=== PATIENT | male | born 1960 | race Caucasian/White ===

== ENCOUNTER → 2016-07-21 | Outpatient (REF) | payer OTHER | LOC: M SFHCPLAZ 08:32 | PROVIDERS: ATTEND Family Medicine | DX: E11.9 Type 2 diabetes mellitus without complications (principal); N39.43 Post-void dribbling | CPT/HCPCS: 36415; 82043; 83036; G0103 ==

== ENCOUNTER 2016-11-24 07:21 | Outpatient (CLI) | payer OTHER ==
[~2016-11-24] VITALS: Ht 182.9 cm; Wt 120.2 kg
[~2016-11-24 07:21] MED LIST: ASPI1TAB PO; GLUC15002 PO; METF750T PO; MULT1TAB10 PO; SAW80CAP PO
[2016-11-24] MEDS ORDERED: NS 1,000 ML IV ONE (08:00)
[2016-11-24] MEDS ORDERED: PROPOFOL 200 MG/20 ML VIAL As Ordered ONE ×2 (08:56→09:03)
--- NOTE | 2016-11-24 09:09 | ROOR ---
Patient Name: Marcello Salazar Procedure Date: 11/24/2016 8:50 AM Date of : 1960 Age: 56 Room: [facility] Gender: Male Note Status: Finalized Procedure: Total Colonoscopy to Cecum Indications: High risk colon cancer surveillance: Personal history of colon cancer, Last colonoscopy: 2006 Providers: Mario Colón MD Referring MD: PERRI SMITH DO Requesting Provider: Medicines: Monitored Anesthesia Care Complications: No immediate complications. Procedure: Pre-Anesthesia Assessment: - The heart rate, respiratory rate, oxygen saturations, blood pressure, adequacy of pulmonary ventilation, and response to care were monitored throughout the procedure. The Colonoscope was introduced through the anus and advanced to the cecum, identified by appendiceal orifice and ileocecal valve. The colonoscopy was performed without difficulty. The patient tolerated the procedure well. The quality of the bowel preparation was excellent. Findings: The perianal and digital rectal examinations were normal. Non-bleeding internal hemorrhoids were found during retroflexion. The hemorrhoids were small and Grade I (internal hemorrhoids that do not prolapse). Scattered small-mouthed diverticula were found in the recto-sigmoid colon, sigmoid colon and descending colon. The exam was otherwise without abnormality on direct and retroflexion views. Impression: - Non-bleeding internal hemorrhoids. - Diverticulosis in the recto-sigmoid colon, in the sigmoid colon and in the descending colon. - The examination was otherwise normal on direct and retroflexion views. - No specimens collected. - The exam was otherwise normal to the cecum. Recommendation: - Patient has a contact number available for emergencies. The signs and symptoms of potential delayed complications were discussed with the patient. Return to normal activities tomorrow. Written discharge instructions were provided to the patient. - High fiber diet. - Discharge patient to home. - Continue present medications. - Repeat colonoscopy in 5 years for screening purposes. - Return to referring physician. - The findings and recommendations were discussed with the patient's family. Mario Colón MD Mario Colón MD 11/24/2016 9:09:32 AM This report has been signed electronically. Number of Addenda: 0 Note Initiated On: 11/24/2016 8:50 AM Estimated Blood Loss: Estimated blood loss: none.
[2016-11-24 09:30] VITALS: BP 186/99
== END 2016-11-24 09:53 | disposition home or self-care (01) ==
LOC: M OPP 07:21
PROVIDERS: ATTEND Internal Medicine Gastroenterology
DX: Z12.11 Encounter for screening for malignant neoplasm of colon (principal); K64.0 First degree hemorrhoids; K57.30 Diverticulosis of large intestine without perforation or abscess without bleeding; E11.9 Type 2 diabetes mellitus without complications; Z85.038 Personal history of other malignant neoplasm of large intestine; M19.90 Unspecified osteoarthritis, unspecified site; Z80.0 Family history of malignant neoplasm of digestive organs; Z79.82 Long term (current) use of aspirin; Z79.899 Other long term (current) drug therapy

== ENCOUNTER → 2016-12-16 | Outpatient (CLI) | payer OTHER ==
--- NOTE | 2016-12-16 12:21 | REP ---
Cervical spine seven views: There are no comparisons. There are anterior bridging osteophytes at C three through C seven. This is nonspecific and could represent multilevel degenerative disc disease or diffuse idiopathic skeletal hyperostosis. Vertebral body heights and alignment are normal. The prevertebral soft tissues are normal. The facets are normally aligned. There is no listhesis on flexion or extension. C1-C7 are visualized in the lateral views. T1 is obscured by the shoulders. The patient should return for followup study demonstrating T1. If this is not possible consider CT or MRI. There is moderate foraminal encroachment on the right at C for five C5-6 from uncinate spurring. No bony foraminal encroachment is identified on the left. The odontoid view is unremarkable. Impression: Multilevel anterior measuring osteophytes as described, nonspecific, degenerative disc disease versus diffuse idiopathic skeletal hyperostosis. Moderate bony foraminal encroachment on the right as described. T1 is not demonstrated as it is obscured by the shoulders. The patient should return for follow-up views demonstrating T1 in the lateral projection. If this is not possible consider CT or MRI. Signed by Titi Thomason MD 12/16/2016 12:12 P
== END ==
LOC: M WUC 11:37
PROVIDERS: ATTEND Physician Assistant
DX: M54.2 Cervicalgia (principal)

== ENCOUNTER → 2017-01-26 | Outpatient (REF) | payer OTHER ==
[2017-01-26 13:07] LABS: ALBUMIN 3.5 GM/DL (3.2-5.2); ALBUMIN/GLOBULIN RATIO 0.97 (1.00-1.93); ALKALINE PHOSPHATASE 59 U/L (45-117); ALT/SGPT 43 U/L (12-78); ANION GAP 4 MEQ/L (8-16); AST/SGOT 33 U/L (7-37); BILIRUBIN,TOTAL 0.6 MG/DL (0.2-1.0); BLOOD UREA NITROGEN 15 MG/DL (7-18); CARBON DIOXIDE LEVEL 30 MEQ/L (21-32); CHLORIDE LEVEL 106 MEQ/L (98-107); CREATININE FOR GFR 0.83 MG/DL (0.70-1.30); GLOMERULAR FILTRATION RATE > 60.0 (>56); GLUCOSE, FASTING 90 MG/DL (70-105); PHOSPHORUS LEVEL 2.8 MG/DL (2.5-4.9); POTASSIUM SERUM 4.8 MEQ/L (3.5-5.1); SODIUM LEVEL 140 MEQ/L (136-145); TOTAL PROTEIN 7.1 GM/DL (6.4-8.2)
== END ==
LOC: M SFHCPLAZ 08:53
PROVIDERS: ATTEND Family Medicine
DX: M85.80 Other specified disorders of bone density and structure, unspecified site (principal)

== ENCOUNTER → 2017-08-03 | Outpatient (REF) | payer OTHER ==
[2017-08-03 11:34] LABS: ANION GAP 7 MEQ/L (8-16); BLOOD UREA NITROGEN 18 MG/DL (7-18); CALCIUM LEVEL 8.8 MG/DL (8.5-10.1); CARBON DIOXIDE LEVEL 27 MEQ/L (21-32); CHLORIDE LEVEL 107 MEQ/L (98-107); CHOLESTEROL LEVEL 149 MG/DL (<200); CHOLESTEROL RISK RATIO 2.292 (<5); GLOMERULAR FILTRATION RATE > 60.0 (>56); GLUCOSE, FASTING 82 MG/DL (70-100); HDL CHOLESTEROL 65 MG/DL (>40); LDL CHOLESTEROL 71.2 MG/DL (<100); NON-HDL-C 84 MG/DL; POTASSIUM SERUM 4.6 MEQ/L (3.5-5.1); SODIUM LEVEL 141 MEQ/L (136-145); TRIGLYCERIDES LEVEL 64 MG/DL (<150)
[2017-08-03 11:44] LABS: ESTIMATED AVERAGE GLUCOSE 111 MG/DL (60-110); HEMOGLOBIN A1c 5.5 %
[2017-08-03 12:21] LABS: CREATININE, URINE 51.3 MG/DL; MALB URINE SIEMENS < 5.0 MG/L; MAU/CREAT RATIO 9.7 MCG/MG (0.0-30.0)
== END ==
LOC: M SFHCPLAZ 08:23
DX: E11.9 Type 2 diabetes mellitus without complications (principal); Z12.5 Encounter for screening for malignant neoplasm of prostate

== ENCOUNTER 2017-12-27 14:30 | Emergency (ER) | payer OTHER ==
[2017-12-27] MEDS: LIDOCAINE 1% MDV 20ML VIAL SC (15:00)
[2017-12-27] MEDS: PERCOCET 5MG/325MG TAB PO (16:24)
== END 2017-12-27 16:28 | disposition home or self-care (01) ==
LOC: M ED 14:30
DX: S61.012A Laceration without foreign body of left thumb without damage to nail, initial encounter (principal); S61.211A Laceration without foreign body of left index finger without damage to nail, initial encounter; W31.2XXA Contact with powered woodworking and forming machines, initial encounter; Y92.009 Unspecified place in unspecified non-institutional (private) residence as the place of occurrence of the external cause; Y93.89 Activity, other specified; Z79.84 Long term (current) use of oral hypoglycemic drugs; Z79.899 Other long term (current) drug therapy
CPT/HCPCS: 12002

== ENCOUNTER → 2018-05-03 | Outpatient (REF) | payer OTHER ==
[~2018-05-03] MED LIST changes: +DOXY100C37 PO; +FLOM0.4C39 PO; +LISI10TA4 PO; +OXYC1TAB15 PO; +PRAV10TA4 PO; +PRAV40TA2 PO
[2018-05-03 17:42] LABS: BASO # 0.1 10^3/uL (0.0-0.2); BASO % 0.6 % (0.0-1.0); EOS # 0.4 10^3/uL (0.0-0.50); EOS % 4.5 % (0.0-3.0); HEMATOCRIT 47.8 % (42.0-52.0); HEMOGLOBIN 15.8 g/dl (13.5-17.5); LYMPH # 2.9 10^3/uL (1.5-4.5); LYMPH % 35.8 % (24.0-44.0); MEAN CORPUSCULAR HEMOGLOBIN 32.5 pg (27.0-33.0); MEAN CORPUSCULAR HGB CONC 33.1 g/dl (32.0-36.5); MEAN CORPUSCULAR VOLUME 98.4 fl (80.0-96.0); MONO # 0.8 10^3/uL (0.0-0.8); MONO % 9.4 % (0.0-5.0); NEUTROPHILS % 49.4 % (36.0-66.0); PLATELET COUNT, AUTOMATED 212 10^3/uL (150-450); RED BLOOD COUNT 4.86 10^6/uL (4.30-6.10)
[2018-05-03 18:03] LABS: BLOOD UREA NITROGEN 20 MG/DL (7-18); CALCIUM LEVEL 8.7 MG/DL (8.5-10.1); CARBON DIOXIDE LEVEL 30 MEQ/L (21-32); CHLORIDE LEVEL 104 MEQ/L (98-107); CREATININE FOR GFR 0.75 MG/DL (0.70-1.30); GLOMERULAR FILTRATION RATE > 60.0 (>56); GLUCOSE, FASTING 95 MG/DL (70-100); POTASSIUM SERUM 4.1 MEQ/L (3.5-5.1); SODIUM LEVEL 138 MEQ/L (136-145)
[2018-05-03 18:09] LABS: HEMOGLOBIN A1c 6.3 %
[2018-05-03 18:14] LABS: VITAMIN B12 LEVEL 765 PG/ML (247-911)
== END ==
LOC: M SFHCPLAZ 15:10
PROVIDERS: ATTEND Family Medicine
DX: G62.9 Polyneuropathy, unspecified (principal); E11.9 Type 2 diabetes mellitus without complications

== ENCOUNTER → 2018-06-02 | Outpatient (CLI) | payer OTHER ==
--- NOTE | 2018-06-03 01:52 | REP ---
Clinical: Rotator cuff. Right shoulder pain. Technique: Internal rotation, external rotation, and Y view of the right shoulder. 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 Findings include cortical irregularity and spurring/osteophyte formation involving the acromioclavicular joint and distal acromion as well as subtle cortical irregularity and spurring along the humeral head identified on the internal rotation view. There is no evidence for acute fracture or dislocation. The subacromial space measures approximately 10 mm on external rotation, and narrows to 8.8 mm on internal rotation view. No periarticular calcifications or loose bodies are identified. Impression: Moderate/early advanced degenerative changes. Electronically Signed by Everett Merida MD 06/03/2018 01:44 A
== END ==
LOC: M WUC 11:10
PROVIDERS: ATTEND Family Medicine
DX: M67.911 Unspecified disorder of synovium and tendon, right shoulder (principal); M19.011 Primary osteoarthritis, right shoulder

== ENCOUNTER → 2019-02-01 | Outpatient (REF) | payer OTHER ==
[~2019-02-01] MED LIST changes: -ASPI1TAB PO; +ASPI81TA26 PO; -METF750T PO; +METF750T36 PO
== END ==
LOC: M SFHCPLAZ 14:36
PROVIDERS: ATTEND Family Medicine
DX: E11.9 Type 2 diabetes mellitus without complications (principal); Z53.9 Procedure and treatment not carried out, unspecified reason

== ENCOUNTER → 2019-03-30 | Outpatient (CLI) | payer OTHER ==
[2019-03-30 17:51] LABS: CREATININE, URINE 36.6 MG/DL; MALB URINE SIEMENS < 5.0 MG/L; MAU/CREAT RATIO 13.6 MCG/MG (0.0-30.0)
== END ==
LOC: M WUC 12:07
PROVIDERS: ATTEND Student in an Organized Health Care Education/Training Program
DX: E11.9 Type 2 diabetes mellitus without complications (principal)

== ENCOUNTER → 2020-01-04 | Outpatient (REF) | payer OTHER ==
[2020-01-04 11:20] LABS: HEMATOCRIT 45.2 % (42.0-52.0); HEMOGLOBIN 14.6 g/dl (13.5-17.5); MEAN CORPUSCULAR HEMOGLOBIN 32.3 pg (27.0-33.0); MEAN CORPUSCULAR HGB CONC 32.3 g/dl (32.0-36.5); PLATELET COUNT, AUTOMATED 187 10^3/uL (150-450); RED BLOOD COUNT 4.52 10^6/uL (4.30-6.10); WHITE BLOOD COUNT 5.8 10^3/uL (4.0-10.0)
[2020-01-04 11:42] LABS: ALBUMIN 3.5 GM/DL (3.2-5.2); ALT/SGPT 39 U/L (12-78); BILIRUBIN,TOTAL 0.8 MG/DL (0.2-1.0); BLOOD UREA NITROGEN 16 MG/DL (7-18); CALCIUM LEVEL 9.3 MG/DL (8.5-10.1); CARBON DIOXIDE LEVEL 26 MEQ/L (21-32); CHLORIDE LEVEL 106 MEQ/L (98-107); CHOLESTEROL LEVEL 145 MG/DL (<200); CHOLESTEROL RISK RATIO 2.013 (<5); CREATININE FOR GFR 0.74 MG/DL (0.70-1.30); GLOMERULAR FILTRATION RATE > 60.0 (>56); GLUCOSE, FASTING 100 MG/DL (70-100); HDL CHOLESTEROL 72 MG/DL (>40); LDL CHOLESTEROL 64 MG/DL (<100); NON-HDL-C 73 MG/DL; POTASSIUM SERUM 4.5 MEQ/L (3.5-5.1); SODIUM LEVEL 138 MEQ/L (136-145); TRIGLYCERIDES LEVEL 45 MG/DL (<150)
[2020-01-04 11:47] LABS: HEMOGLOBIN A1c 5.5 %
[2020-01-04 12:06] LABS: CREATININE, URINE 53.6 MG/DL; MALB URINE SIEMENS < 5.0 MG/L; MAU/CREAT RATIO 9.3 MCG/MG (0.0-30.0)
== END ==
LOC: M SFHCPLAZ 08:07
PROVIDERS: ATTEND Student in an Organized Health Care Education/Training Program
DX: E11.9 Type 2 diabetes mellitus without complications (principal); I10 Essential (primary) hypertension

== ENCOUNTER → 2021-01-16 | Outpatient (CLI) | payer OTHER, BC ==
[~2021-01-16] MED LIST changes: +DOXY-443 PO; -DOXY100C37 PO; +LISI10TA22 PO; -LISI10TA4 PO; -OXYC1TAB15 PO; +OXYC7.5T3 PO
[2021-01-16 13:45] LABS: BASO # 0.1 10^3/uL (0.0-0.2); BASO % 1.1 % (0.0-1.0); EOS # 0.3 10^3/uL (0.0-0.5); EOS % 5.2 % (0.0-3.0); HEMATOCRIT 46.5 % (42.0-52.0); LYMPH # 1.8 10^3/uL (1.5-5.0); LYMPH % 33.3 % (24.0-44.0); MEAN CORPUSCULAR HEMOGLOBIN 32.4 pg (27.0-33.0); MEAN CORPUSCULAR HGB CONC 32.3 g/dl (32.0-36.5); MEAN CORPUSCULAR VOLUME 100.4 fl (80.0-96.0); MONO # 0.4 10^3/uL (0.0-0.8); NEUTROPHILS # 2.8 10^3/uL (1.5-8.5); NEUTROPHILS % 52.2 % (36.0-66.0); PLATELET COUNT, AUTOMATED 171 10^3/uL (150-450); RED BLOOD COUNT 4.63 10^6/uL (4.30-6.10); WHITE BLOOD COUNT 5.4 10^3/uL (4.0-10.0)
[2021-01-16 14:11] LABS: ALBUMIN 3.5 GM/DL (3.2-5.2); ALT/SGPT 48 U/L (12-78); BILIRUBIN,TOTAL 0.7 MG/DL (0.2-1.0); BLOOD UREA NITROGEN 15 MG/DL (7-18); CALCIUM LEVEL 9.5 MG/DL (8.5-10.1); CARBON DIOXIDE LEVEL 29 MEQ/L (21-32); CHLORIDE LEVEL 108 MEQ/L (98-107); CHOLESTEROL LEVEL 151 MG/DL (<200); CHOLESTEROL RISK RATIO 2.013 (<5); CREATININE FOR GFR 0.68 MG/DL (0.70-1.30); GLOMERULAR FILTRATION RATE > 60.0 (>56); GLUCOSE, FASTING 93 MG/DL (70-100); HDL CHOLESTEROL 75 MG/DL (>40); LDL CHOLESTEROL 65 MG/DL (<100); NON-HDL-C 76 MG/DL; POTASSIUM SERUM 4.3 MEQ/L (3.5-5.1); SODIUM LEVEL 140 MEQ/L (136-145); TOTAL PROTEIN 6.9 GM/DL (6.4-8.2); TRIGLYCERIDES LEVEL 56 MG/DL (<150)
[2021-01-16 14:27] LABS: MALB URINE SIEMENS < 5.0 MG/L; MAU/CREAT RATIO 7.4 MCG/MG (0.0-30.0)
[2021-01-16 14:28] LABS: HEMOGLOBIN A1c 5.6 %
== END ==
LOC: M PLALAB 09:14
PROVIDERS: ATTEND Student in an Organized Health Care Education/Training Program
DX: I10 Essential (primary) hypertension (principal); E11.9 Type 2 diabetes mellitus without complications; E78.5 Hyperlipidemia, unspecified

== ENCOUNTER → 2021-12-15 | Outpatient (CLI) | payer BC ==
[~2021-12-15] MED LIST changes: +ATOR40TA75 PO; +LISI5TAB11 PO; +METF-838 PO
== END ==
LOC: M LABSMTC 10:21
PROVIDERS: ATTEND Anesthesiology
DX: Z01.812 Encounter for preprocedural laboratory examination (principal); Z20.822 Contact with and (suspected) exposure to COVID-19

== ENCOUNTER 2021-12-18 10:13 | Day surgery (SDC) | payer BC ==
[~2021-12-18] VITALS: Ht 182.9 cm; Wt 114.9 kg
[~2021-12-18 10:13] MED LIST changes: +NS 1,000 ML IV ONE
[2021-12-18] MEDS ORDERED: propofoL 200 MG/20 ML VIAL As Ordered ONE ×2 (11:38→11:39)
[2021-12-18] MEDS ORDERED: LIDOCAINE 2% 100MG/5ML SDV (FOR ANES.) As Ordered ONE (11:38)
[2021-12-18 12:25] VITALS: BP 149/81
== END 2021-12-18 12:46 | disposition home or self-care (01) ==
LOC: M OPP 10:13
PROVIDERS: ATTEND Internal Medicine Gastroenterology
DX: Z12.11 Encounter for screening for malignant neoplasm of colon (principal); Z85.038 Personal history of other malignant neoplasm of large intestine; Z80.0 Family history of malignant neoplasm of digestive organs; Z83.71 Family history of colonic polyps; K64.0 First degree hemorrhoids; K57.30 Diverticulosis of large intestine without perforation or abscess without bleeding; Z98.0 Intestinal bypass and anastomosis status; Z79.02 Long term (current) use of antithrombotics/antiplatelets; Z79.84 Long term (current) use of oral hypoglycemic drugs; Z79.899 Other long term (current) drug therapy; E11.9 Type 2 diabetes mellitus without complications; I10 Essential (primary) hypertension

== ENCOUNTER → 2022-05-28 | Outpatient (CLI) | payer OTHER ==
[~2022-05-28] MED LIST changes: -NS 1,000 ML IV ONE
[2022-05-28 10:53] LABS: BASO % 0.6 % (0.0-1.0); EOS # 0.3 10^3/uL (0.0-0.5); EOS % 4.9 % (0.0-3.0); HEMATOCRIT 46.4 % (42.0-52.0); HEMOGLOBIN 15.2 g/dl (13.5-17.5); LYMPH # 1.6 10^3/uL (1.5-5.0); LYMPH % 32.2 % (24.0-44.0); MEAN CORPUSCULAR HEMOGLOBIN 32.4 pg (27.0-33.0); MEAN CORPUSCULAR HGB CONC 32.8 g/dl (32.0-36.5); MEAN CORPUSCULAR VOLUME 98.9 fl (80.0-96.0); MONO # 0.5 10^3/uL (0.0-0.8); MONO % 9.7 % (2.0-8.0); NEUTROPHILS # 2.7 10^3/uL (1.5-8.5); NEUTROPHILS % 52.4 % (36.0-66.0); PLATELET COUNT, AUTOMATED 178 10^3/uL (150-450); RED BLOOD COUNT 4.69 10^6/uL (4.30-6.10); WHITE BLOOD COUNT 5.1 10^3/uL (4.0-10.0)
[2022-05-28 11:13] LABS: BLOOD UREA NITROGEN 21 MG/DL (9-23); CARBON DIOXIDE LEVEL 29 MMOL/L (20-31); CHLORIDE LEVEL 105 MMOL/L (98-107); CHOLESTEROL LEVEL 135 MG/DL (<200); CREATININE FOR GFR 0.71 MG/DL (0.70-1.30); GLOMERULAR FILTRATION RATE > 60.0 (>49); GLUCOSE, FASTING 97 MG/DL (74-106); HDL CHOLESTEROL 67.4 MG/DL (>40); LDL CHOLESTEROL 59.6 MG/DL (<100); NON-HDL-C 67.6 MG/DL; POTASSIUM SERUM 4.5 MMOL/L (3.5-5.1); SODIUM LEVEL 138 MMOL/L (136-145); TRIGLYCERIDES LEVEL 40 MG/DL (<150)
[2022-05-28 11:17] LABS: FREE T4 1.03 NG/DL (0.89-1.76)
[2022-05-28 11:18] LABS: THYROID STIMULATING HORMONE 1.073 uIU/ML (0.55-4.78)
[2022-05-28 11:31] LABS: HEMOGLOBIN A1c 5.8 % (4.0-6.0)
[2022-05-29 23:15] LABS: PSA TOTAL 0.7 ng/mL (0.0-4.0)
== END ==
LOC: M PLALAB 08:32
PROVIDERS: ATTEND Student in an Organized Health Care Education/Training Program
DX: Z00.00 Encounter for general adult medical examination without abnormal findings (principal); Z12.5 Encounter for screening for malignant neoplasm of prostate; E11.9 Type 2 diabetes mellitus without complications; E78.5 Hyperlipidemia, unspecified; Z13.29 Encounter for screening for other suspected endocrine disorder

== ENCOUNTER → 2022-12-16 | Outpatient (REF) | payer OTHER | LOC: M SFHCPLAZ 08:56 | PROVIDERS: ATTEND Student in an Organized Health Care Education/Training Program | DX: E11.9 Type 2 diabetes mellitus without complications (principal); Z53.9 Procedure and treatment not carried out, unspecified reason ==

== ENCOUNTER → 2023-06-08 | Outpatient (CLI) | payer OTHER ==
[2023-06-08 12:33] LABS: HEMOGLOBIN A1c 5.4 % (4.0-6.0)
[2023-06-08 12:41] LABS: CREATININE, URINE 57.9 MG/DL; MALB URINE SIEMENS < 3.0 MG/L; MAU/CREAT RATIO 5.1 MCG/MG (0.0-30.0)
== END ==
LOC: M PLALAB 08:53
PROVIDERS: ATTEND Family Medicine
DX: E11.9 Type 2 diabetes mellitus without complications (principal)

== ENCOUNTER → 2024-01-14 | Outpatient (CLI) | payer OTHER ==
[~2024-01-14] MED LIST changes: +DOXY-441 PO; -DOXY-443 PO
== END ==
LOC: M SOG 07:53
PROVIDERS: ATTEND Physician Assistant
DX: M25.561 Pain in right knee (principal)

== ENCOUNTER → 2024-02-09 | Outpatient (CLI) | payer OTHER | LOC: M RAD 07:21 | PROVIDERS: ATTEND Orthopaedic Surgery Hand Surgery | DX: S83.241A Other tear of medial meniscus, current injury, right knee, initial encounter (principal); Y93.9 Activity, unspecified; Y92.9 Unspecified place or not applicable ==